=== PATIENT | male | born 1965 | race Caucasian/White ===

== ENCOUNTER 2018-12-04 13:24 | Emergency (ER) | payer OTHER ==
[2018-12-04 13:36] VITALS: BP 140/91
--- NOTE | 2018-12-04 14:23 | UC ---
Back Pain HPI - HPI Summary HPI Summary: 53 year old male with PMH + for cardiac stent placed ~ 5 years ago, on anticoag , HTN presents with back pain x 2 days. No trauma, falls, no increased lifting. No prior back pain/ injuries/ surgery - Denies chest pain, abdominal pain, SOB - Denies increased pain with movement, positioning- states painful in any position or movement- no change. Improved with Motrin yesterday. - Headache improved since yesterday- Denies neck stiffness. Diffuse headache, minimally improved with 600mg motrin - Denies weakness, numbness, tingling. Ambulatory without difficulty. - No urinary symptoms- no hematuria. - No recent med changes. - Concerned about kidney stone as daughter was recently dx'd with one. - History of Current Complaint Chief Complaint: UCBackPain Stated Complaint: BACK PAIN/HEADACHE Time Seen by Provider: 12/04/18 13:38 Hx Obtained From: Patient Onset/Duration: Sudden Onset, Lasting Days - 2 days Timing: Constant Severity Initially: Moderate Severity Currently: Moderate Pain Intensity: 3 Pain Scale Used: 0-10 Numeric Back Pain: Is Discrete @ - mid back, paraspinal, radiating up to head yesterdya - Allergies/Home Medications Allergies/Adverse Reactions: Allergies Allergy/AdvReac Type Severity Reaction Status Date / Time No Known Allergies Allergy Verified 12/04/18 17:16 Home Medications: Home Medications Atorvastatin* [Lipitor 40 MG*] 1 tab PO DAILY 12/04/18 [History Confirmed ] Lisinopril 1 tab PO DAILY 12/04/18 [History Confirmed 12/04/18] PMH/Surg Hx/FS Hx/Imm Hx - Surgical History Surgical History: None - Social History Alcohol Use: Occasionally Substance Use Type: None Smoking Status (MU): Never Smoked Tobacco Review of Systems All Other Systems Reviewed And Are Negative: Yes Constitutional: Positive: Negative Gastrointestinal: Positive: Negative Motor: Positive: Negative Neurovascular: Positive: Negative Psychological: Positive: Anxious Is Patient Immunocompromised?: No Physical Exam Triage Information Reviewed: Yes Appearance: No Pain Distress, Well-Nourished, Ill-Appearing Vital Signs: Initial Vital Signs Temp 98.4 F 12/04/18 13:33 Pulse 95 12/04/18 13:33 Resp 16 12/04/18 13:33 BP 140/91 12/04/18 13:33 Pulse Ox 100 08/08/19 13:33 Vital Signs Reviewed: Yes Eye Exam: Normal Neck: Positive: Supple, Nontender, No Lymphadenopathy. Negative: Nuchal Rigidity, Enlarged Nodes @ Respiratory: Positive: Chest non-tender, Lungs clear, Normal breath sounds, No respiratory distress, No accessory muscle use. Negative: Crackles, Rhonchi, Stridor, Wheezing, Expiration Cardiovascular: Positive: RRR, No Murmur, Pulses Normal Abdomen Description: Positive: Nontender, No Organomegaly, Soft, Bruit, Other: - minimal tenderness to palpation thoracic paraspinal. Negative: CVA Tenderness (R), CVA Tenderness (L) Musculoskeletal Exam: Normal Musculoskeletal: Positive: Strength Intact, ROM Intact Neurological Exam: Normal Neurological: Positive: Alert, Muscle Tone Normal Psychological Exam: Normal Skin Exam: Normal Skin: Negative: Rashes, Breakdown Back Pain Course/Dx - Course Course Of Treatment: Pancreatitis on imaging and consistent with examination. Patient sent for further work-up/ treatment via ambulance to [facility]. Info called and given to Dr. Locke. - Differential Dx/Diagnosis Differential Diagnosis/HQI/PQRI: Strain, Sprain Provider Diagnosis: Pancreatitis Discharge - Sign-Out/Discharge Documenting (check all that apply): Patient Departure All imaging exams completed and their final reports reviewed: Yes - Discharge Plan Condition: Guarded Disposition: TRANS HIGHER LVL OF CARE FAC Patient Education Materials: Pancreatitis (ED) Referrals: Rodolfo Jeff MD [Primary Care Provider] - Additional Instructions: - nothing by mouth - Go Directly to ER for treatment - Billing Disposition and Condition Condition: GUARDED Disposition: Trans Higher Lvl of Care Fac - Attestation Statements Provider Attestation: Patient was seen by [facility]. Patient was presented to me by a PPD. Patient is a 53-year-old male here with back pain that started the day prior to this visit. Patient's pain is or when he woke up. Patient had associated headache which has since improved. Patient's pain is located in his lumbar spine and does not radiate. Patient no abdominal pain, numbness, tingling, bowel/bladder dysfunction, saddle anesthesia. On exam, patient has paraspinal tenderness in his lumbar spine. No abdominal mass noted. Femoral pulses 2+. Radial pulses 2+. Patient standing at bedside and ambulating without difficulty on both his toes and his heels. Imaging reviewed and patient had pancreatitis on CT scan. Patient sent to [facility] for further evaluation and management.
[2018-12-04] MEDS ORDERED: NS 0.9% 1000 ML** 1,000 ML IV ONE (16:14)
[2018-12-04] MEDS ORDERED: Morphine 10 MG/ML VIAL (1 ml) IV ONE (16:16)
[2018-12-04] MEDS ORDERED: Ondansetron INJ* 2 MG/ML VIAL IV ONE (16:18)
== END 2018-12-04 16:40 | disposition short-term general hospital (02) ==
LOC: UCEAST 13:24
DX: K85.90 Acute pancreatitis without necrosis or infection, unspecified (principal); I10 Essential (primary) hypertension; Z79.01 Long term (current) use of anticoagulants
CPT/HCPCS: 74176; 81002; 96374; 96375; 99203; G0463; J2270; J2405

== ENCOUNTER 2018-12-04 17:04 | Observation (INO) | payer OTHER ==
--- NOTE | 2018-12-04 17:39 | ED ---
Abdominal Pain/Male - HPI Summary HPI Summary: 53 year old M brought in by ambulance from [facility] to [facility] with a chief complaint of abdominal pain since yesterday morning. The patient rates the pain 5/10 in severity. Symptoms aggravated by nothing. Symptoms alleviated by Advil. Patient reports lower/mid back pain and difficulty sleeping. Patient denies nausea, vomiting, fever, chills, chest pain. Patient was diagnosed with pancreatitis at [facility]. Denies hx pancreatitis. Patient had CT Abdomen/ Pelvis done at [facility]. Patient takes lisinopril, aspirin 81 mg, and Lipitor. Patient states he drinks alcohol occasionally but hasn't had any in the last week. Patient denies smoking and recreational drug use. - History of Current Complaint Chief Complaint: EDAbdPain Stated Complaint: FLANK PAIN PER EMS Time Seen by Provider: 12/04/18 17:29 Hx Obtained From: Patient Onset/Duration: Lasting Days - 1, Still Present Timing: Constant Severity Currently: Moderate Pain Intensity: 4 Pain Scale Used: 0-10 Numeric Aggravating Factor(s): Nothing Alleviating Factor(s): Other: - Advil Associated Signs And Symptoms: Positive: Negative - nausea, vomiting, fever, chills, chest pain, Other - lower/mid back pain and difficulty sleeping - Allergies/Home Medications Allergies/Adverse Reactions: Allergies Allergy/AdvReac Type Severity Reaction Status Date / Time No Known Allergies Allergy Verified 12/04/18 17:16 Home Medications: Home Medications Aspirin EC TAB* [Ecotrin EC Low Dose 81 MG*] 81 mg PO DAILY 12/04/18 [History Confirmed 12/04/18] PMH/Surg Hx/FS Hx/Imm Hx Cardiovascular History: Reports: Hx Hypercholesterolemia, Hx Hypertension Sensory History: Denies: Hx Deafness EENT History: Denies: Hx Deafness - Cancer History Cancer Type, Location and Year: none - Surgical History Surgery Procedure, Year, and Place: n/a Infectious Disease History: No Infectious Disease History: Denies: Traveled Outside the [place] in Last 30 Days - Family History Known Family History: Negative: Blood Disorder - Social History Alcohol Use: Occasionally Hx Substance Use: No Substance Use Type: Reports: None Hx Tobacco Use: No Smoking Status (MU): Never Smoked Tobacco Review of Systems Negative: Fever, Chills Negative: Chest Pain Positive: Abdominal Pain. Negative: Vomiting, Nausea Positive: Other - lower/mid back pain Positive: Other - difficulty sleeping All Other Systems Reviewed And Are Negative: Yes Physical Exam - Summary Physical Exam Summary: GENERAL: Patient is a well-developed and nourished M who is lying comfortable in the stretcher. Patient is not in any acute respiratory distress. HEAD AND FACE: Normocephalic EYES: PERRLA, EOMI x 2. EARS: Hearing grossly intact. MOUTH: Oropharynx within normal limits. NECK: Supple, trachea is midline, no adenopathy, no JVD, no carotid bruit. CHEST: Symmetric, no tenderness at palpation LUNGS: Clear to auscultation bilaterally. No wheezing or crackles. CVS: Regular rate and rhythm, S1 and S2 present, no murmurs or gallops appreciated. ABDOMEN: Very mild tend to palpation in epigastric area. Abdomen is soft. Bowel sounds are normal. No abnormal abdominal pulsations. EXTREMITIES: Full ROM in all major joints, no edema, no cyanosis or clubbing. NEURO: Alert and oriented x 3. No acute neurological deficits. Speech is normal and follows commands. SKIN: Dry and warm Triage Information Reviewed: Yes Vital Signs On Initial Exam: Initial Vitals Temp Pulse Resp BP Pulse Ox 97.6 F 80 16 161/93 97 12/04/18 17:12 12/04/18 17:12 12/04/18 17:12 12/04/18 17:12 12/04/18 17:12 Vital Signs Reviewed: Yes Diagnostics - Vital Signs Vital Signs Temp Pulse Resp BP Pulse Ox 12/04/18 17:12 97.6 F 80 16 161/93 97 - Laboratory Result Diagrams: 12/06/18 06:50 12/06/18 06:50 Lab Statement: Any lab studies that have been ordered have been reviewed, and results considered in the medical decision making process. - EKG 1756 Cardiac Rate: NL - 76 BPM EKG Rhythm: Sinus Rhythm Summary of EKG Findings: NSR 76 BPM Abdominal Pain Male Course/Dx - Course Course Of Treatment: 53 year old M brought in by ambulance from [facility] to [facility] with a chief complaint of abdominal pain, lower/mid back pain, difficulty sleeping since yesterday morning. Patient was diagnosed with pancreatitis at [facility] where he had CT Abdomen/Pelvis done. PE findings: Very mild tenderness to palpation in epigastric area. EKG shows NSR 76 BPM. In ED course, patient was given morphine 4 mg and Zofran 4 mg. UAs show no significant abnormalities except for specific gravity 1.003, ketones trace, blood 1+, glucose 1+. The patient will be signed out to Dr. Smallwood upon shift change at 19:00 12/04/18, awaiting bloodwork, and pending disposition. - Diagnoses Provider Diagnoses: Duodenitis Discharge - Sign-Out/Discharge Documenting (check all that apply): Sign-Out Patient Signing out patient TO: Hugh Smallwood - awaiting bloodwork and pending disposition. Patient Received Moderate/Deep Sedation with Procedure: No - Discharge Plan Condition: Improved Disposition: ADMITTED TO [facility] - Billing Disposition and Condition Condition: IMPROVED Disposition: Admitted to [facility] - Attestation Statements Document Initiated by Shireene: Yes Documenting Scribe: Marielle ram Provider For Whom Chanibe is Documenting (Include Credential): Milady Jay MD Scribe Attestation: Marielle Perez, scribed for Milady Jay MD on 12/06/18 at 0819. Scribe Documentation Reviewed: Yes Provider Attestation: The documentation as recorded by the scribeMarielle accurately reflects the service I personally performed and the decisions made by me, Milady Jay MD Status of Scribe Document: Viewed
[2018-12-04] MEDS ORDERED: NS 0.9% 1000 ML** 1,000 ML IV ONE (17:50)
[2018-12-04] MEDS ORDERED: Ondansetron INJ* 2 MG/ML VIAL IV ONE (17:52)
[2018-12-04] MEDS ORDERED: Morphine 4 MG/ML VIAL (1 ml) 4 MG/ML VIAL IV ONE ×2 (17:52→20:25)
[2018-12-04 18:38] LABS: Urine Appearance Clear; Urine Bacteria Absent (Absent); Urine Bilirubin Negative (Negative); Urine Blood 1+ (Negative); Urine Color Colorless; Urine Glucose 1+(50 mg/dL) (Negative); Urine Ketones Trace (Negative); Urine Nitrite Negative (Negative); Urine Protein Negative (Negative); Urine Red Blood Cell Trace(0-2/hpf) (Absent); Urine Specific Gravity 1.003 (1.010-1.030); Urine Urobilinogen Negative (Negative); Urine White Blood Cell Absent (Absent)
[2018-12-04 18:57] LABS: ABS Basophils 0.1 10^3/ul (0-0.2); ABS Eosinophils 0.1 10^3/ul (0-0.6); ABS Lymphocytes 1.4 10^3/ul (1.0-4.8); ABS Monocytes 1.5 10^3/ul (0-0.8); ABS Neutrophils 13.3 10^3/ul (1.5-7.7); Eosinophil % 0.7 %; Hematocrit 40 % (42-52); Lymphocyte % 8.8 %; Mean Corpuscular HGB Conc 33 g/dL (31-36); Mean Corpuscular Hemoglobin 30 pg (27-31); Mean Corpuscular Volume 92 fL (80-94); Mean Platelet Volume 8.1 fL (7.4-10.4); Platelet Count 268 10^3/uL (150-450); Red Blood Count 4.32 10^6 /uL (4.18-5.48); Red Cell Distribution Width 14 % (10-15); White Blood Count 16.3 10^3/uL (3.5-10.8)
[2018-12-04 19:04] LABS: Activated Partial Thrombo Time 35.3 seconds (26.0-38.0); INR 1.06 (0.82-1.09)
[2018-12-04 19:09] LABS: ALT 12 U/L (7-52); Albumin 4.5 g/dL (3.2-5.2); Albumin/Globulin Ratio 1.5 (1-3); Alkaline Phosphatase 49 U/L (34-104); Amylase 43 U/L (29-103); BUN/Creatinine Ratio 14.7 (8-20); Blood Urea Nitrogen 16 mg/dL (6-24); C Reactive Protein 144.78 mg/L (<8.01); CO2 Carbon Dioxide 22 mmol/L (22-32); Calcium 9.2 mg/dL (8.6-10.3); Chloride 101 mmol/L (101-111); EGFR Non-African American 70.2 (>60); Glucose 105 mg/dL (70-100); Sodium 133 mmol/L (135-145); Total Protein 7.5 g/dL (6.4-8.9); Troponin I 0.01 ng/mL (<0.04)
--- NOTE | 2018-12-04 19:17 | ED ---
Progress - Progress Note Progress Note: Patient is received as a sign-out from Dr. Jay to Dr. Smallwood at 189912/04/18 shift change pending lab results for this patient. 2019 - Patient reports increase of back pain. He states that the pain onset yesterday morning. Patient reports no abdominal pain. Nausea and decreased appetite are endorsed while vomiting and fever are denied. No bowel issues reported. He reports no food since yesterday and states he had a bowel movement this morning. Cardiac stent placement 4.5 years ago is reported. No extensive alcohol usage is noted. No pain to palpation noted. Patient is agreeable with admission. Re-Evaluation - Re-Evaluation First Eval Re-Evaluation Time: 20:20 Change: Worse Comment: 2019 - Patient reports increase of back pain. He states that the pain onset yesterday morning. Patient reports no abdominal pain. Nausea and decreased appetite are endorsed while vomiting and fever are denied. No bowel issues reported. He reports no food since yesterday and states he had a bowel movement this morning. Cardiac stent placement 4.5 years ago is reported. No extensive alcohol usage is noted. No pain to palpation noted. Patient is agreeable with admission. Course/Dx - Course Course Of Treatment: Patient is received as a sign-out from Dr. Jay to Dr. Smallwood at 189912/04/18 shift change pending lab results for this patient. 2019 - Patient reports increase of back pain. He states that the pain onset yesterday morning. Patient reports no abdominal pain. Nausea and decreased appetite are endorsed while vomiting and fever are denied. No bowel issues reported. He reports no food since yesterday and states he had a bowel movement this morning. Cardiac stent placement 4.5 years ago is reported. No extensive alcohol usage is noted. No pain to palpation noted. Patient is agreeable with admission. Labs showed WBC 16.3, Hgb 13, Hct 40, absolute neuts 13.3, absolute monos 1.5, sodium 133, glucose 105, total bilirubin 1.20, CRP 144.78, trop 0.01 , ALT 12, alk phos 49, amylase 43, lipase 52. UA showed trace ketones, 1+ blood , trace RBC, 1+ glucose. During ED course, patient received morphine 4 mg IV and piperacillin sod/tazobactam sod 3.375 gm in sodium chloride, 100 mls @ 200 mls/hr IVPB ONCE. 2031 - Patient's case was discussed with Dr. Roach, Dr. Roach accepts for admission. - Diagnoses Provider Diagnoses: Duodenitis - Provider Notifications Discussed Care Of Patient With: Garcia Roach Time Discussed With Above Provider: 20:32 Instructed by Provider To: Other - 2031 - Patient's case was discussed with Dr. Roach, Dr. Roach accepts for admission. Discharge - Sign-Out/Discharge Documenting (check all that apply): Patient Departure - admit, Receiving Sign- Out Receiving patient FROM: Milady Jay - Discharge Plan Condition: Stable Disposition: ADMITTED TO [facility] Referrals: Rodolfo Jeff MD [Primary Care Provider] - - Attestation Statements Document Initiated by Scribe: Yes Documenting Scribe: KYM DAVIS Provider For Whom Scribe is Documenting (Include Credential): GABE SMALLWOOD MD Scribe Attestation: I, KYM DAVIS, scribed for GABE SMALLWOOD MD on 12/04/18 at 2101. Status of Scribe Document: Ready
[2018-12-04 19:22] LABS: Anion Gap 10 mmol/L (2-11)
[2018-12-04] MEDS ORDERED: Piperacillin/Tazobac ADVAN(*) 3.375 GM in NS 0.9% 100 ML* 100 ML IVPB ONE (20:27)
[2018-12-04] MEDS ORDERED: Al Hydrox/Mg Hydrox/Simet LIQ* 30 ML UDC PO PRN (23:21)
[2018-12-04] MEDS ORDERED: Morphine INJ* 2 MG/ML 1 ML SYRINGE (TWO MG - NEW SYRINGE VERSION) IV PRN (23:21)
[2018-12-04] MEDS ORDERED: Senna TAB 8.6 mg* TAB PO PRN (23:21)
[2018-12-04] MEDS ORDERED: Ondansetron INJ* 2 MG/ML VIAL IV PRN (23:21)
[2018-12-04] MEDS ORDERED: Acetaminophen TAB* 325 MG PO PRN (23:21)
[2018-12-04] MEDS ORDERED: Zosyn per Pharmacy* NOTE FOLLOW UP SCH (23:45)
[2018-12-05] MEDS: ZOSYN 3.375 GM Q8H per EXTENDED INFUSION IVPB SCH ×4 (01:08→08:08)
[2018-12-05] MEDS ORDERED: Pantoprazole IV* 40 MG IV SCH (01:15)
--- NOTE | 2018-12-05 01:49 | HP ---
CC: Dr. Jeff* HISTORY AND PHYSICAL: DATE OF ADMISSION: 12/04/18 PRIMARY CARE PROVIDER: Dr. Jeff. ATTENDING PHYSICIAN WHILE IN THE HOSPITAL: Dr. Garcia Roach* (dictated by JACINTA Mathews). CHIEF COMPLAINT: Back pain and abdominal pain. HISTORY OF PRESENT ILLNESS: Thanh Scales is a 53-year-old white male with past medical history significant for coronary artery disease, hypertension, hyperlipidemia, who presented to urgent care earlier today complaining of back pain and abdominal pain. CT abdomen and pelvis without contrast was performed at urgent care, which demonstrated suspicious findings, questionable for pancreatitis and the patient was advised to report to the emergency department. In the emergency department, the patient's abdominal pain and back pain continued and was moderately improved with morphine. His amylase and lipase are negative, and therefore the hospitalists were asked to evaluate the patient for admission. The patient reports that starting yesterday, he started having back pain bilaterally on either side of his vertebral canal in the mid to lower back region. He denies any recent physical exertion. He says that he at times has abdominal pain in the upper quadrants, which only occurs when the back pain is very severe. He feels like the pain wraps around from his back to the front of his abdomen. He does not believe that this has any pattern in particular. He has not been eating at all because he has no appetite due to this pain. He has had intermittent nausea and has not vomited. His bowel movements have been overall normal. His last bowel movement was this morning, it was not black or bloody. He has not been having diarrhea or urinary issues. He denies fever, chills, chest pain, shortness of breath as well. PAST MEDICAL HISTORY: Hypertension, hyperlipidemia, coronary artery disease status post PCI. PAST SURGICAL HISTORY: Hand surgery to remove a metal chip in the 1990s Stent placed in coronary artery unknown to the patient. MEDICATIONS: 1. Aspirin 81 mg p.o. daily. 2. Lisinopril 10 mg p.o. daily. 3. Lipitor 40 mg p.o. daily. ALLERGIES: No known drug allergies. FAMILY HISTORY: Father of coronary artery disease at age 64. Mother of complications related to Alzheimer's in her 60s. SOCIAL HISTORY: The patient lives with his and 2 daughters in [place]. 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 He has approximately 1 alcoholic beverage per month. He is not a smoker and has never been a smoker but did use to occasionally smoke cigars. Denies illicit drug use. The patient would like his Martha Scales, phone number [phone], to be his surrogate medical decision maker should he need one. REVIEW OF SYSTEMS: An 11-point review of systems was completed and all pertinent positives and negatives are above in the HPI and other systems are negative. PHYSICAL EXAMINATION GENERAL: Obese white male, lying comfortably in hospital bed, appearing comfortable, in no acute distress with daughter and at bedside. HEENT: Head: Normocephalic, atraumatic. Eyes: PERRL. Sclerae anicteric. ENT: Mucous membranes moist. LUNGS: Clear to auscultation throughout. CARDIO: Regular rate and rhythm. No murmurs, rubs, or gallops. ABDOMEN: Normoactive bowel sounds x4 quadrants. Abdomen is soft, nontender, and nondistended. No guarding. No epigastric pain. Tympanic to percussion throughout. MUSCULOSKELETAL: No spinal process tenderness throughout. No tenderness to the paraspinal muscles to touch. No CVA tenderness. NEUROLOGIC: The patient is alert and oriented x3. No focal deficits. Able to move all extremities. SKIN: Skin is warm, dry, and intact. DIAGNOSTIC STUDIES/LAB DATA: CT abdomen and pelvis without contrast obtained at urgent care on 12/04/18, impression: 1. There is interstitial stranding around the pancreatic head, uncinate process and horizontal duodenum suggestive of inflammatory change in the duodenum and/or pancreatitis. Recommend clinical correlation and followup. 2. There is moderate distention of the stomach likely related to the above process. 3. Hepatic steatosis. 4. Multiple renal cysts and possibly complex cyst in the right kidney. Recommend an outpatient renal ultrasound for further evaluation. White blood cell count 16.3, hemoglobin 13.0, hematocrit 40, platelet count 268. Sodium 133, potassium not reported, chloride 101, carbon dioxide 22, anion gap 10, BUN 16, creatinine 1.09, glucose 105, lactic acid 1.4, calcium 9.2. Total bilirubin 1.2, AST not reported, ALT 12, alk phos 49. CRP 144.78. Amylase 43, lipase 52. INR 1.06 Urine, positive 1+ glucose, 1+ blood, trace ketones. ASSESSMENT AND PLAN: Thanh Scales is a 53-year-old white male with past medical history of hypertension, hyperlipidemia, coronary artery disease, who presents for abdominal pain and back pain. The patient will be admitted OBV for : 1. Abdominal pain. The patient's CT demonstrates duodenitis. The pancreatitis that is reported is not correlated as lipase and amylase are within normal limits. The patient does have elevated bilirubin. His AST is not reported and it is ordered to be redrawn. I will order a complete abdominal ultrasound and the patient will be n.p.o. after midnight for this. The patient does not have appetite at this time at any rate. The patient additionally has leukocytosis. Typically, duodenitis on the CT likely represents an ulcer; however, given the leukocytosis, I will continue Zosyn, which has already been given in the emergency department. I will order IV pantoprazole given the possibility of possible duodenal ulcer. The patient does not have evidence of GI bleed at this time. I will order a stool Hemoccult to ensure there is no microscopic blood. The patient does not have an anemia, the patient has a hemoglobin of 13, which is quite stable. I will continue pain control with oxycodone, morphine, and Tylenol and I have ordered a GI consult as well and appreciate their input. 2. Coronary artery disease. Continue lisinopril, atorvastatin, and aspirin. 3. Hypertension. The patient has been overall normotensive. I will continue his home lisinopril. 4. FEN. The patient's potassium is not reported and this needs to be followed up with the redraw that is scheduled. Otherwise, his sodium is minimally decreased but this is possibly due to low oral intake. We will continue to monitor this. Diet is n.p.o. after midnight. 5. Code status. The patient is full code. 6. DVT prophylaxis. The patient has a DVT risk score of 1. I will order SCDs. TIME SPENT: Approximately 45 minutes was spent on this admission, approximately half of the time was spent at bedside. This case has been reviewed by my attending, Dr. Garcia Roach and he agrees with the plan of care. JACINTA MATHEWS [id number]/[facility] #: [id number] MTDD
[2018-12-05] MEDS: oxyCODONE/Acetamin 5/325 MG* TAB PO PRN ×2 (04:38→17:05)
[2018-12-05 06:13] LABS: ABS Eosinophils 0.3 10^3/ul (0-0.6); ABS Lymphocytes 1.3 10^3/ul (1.0-4.8); ABS Monocytes 1.2 10^3/ul (0-0.8); Eosinophil % 2.8 %; Hematocrit 35 % (42-52); Hemoglobin 11.7 g/dL (14.0-18.0); Lymphocyte % 10.6 %; Mean Corpuscular HGB Conc 34 g/dL (31-36); Mean Corpuscular Hemoglobin 31 pg (27-31); Mean Corpuscular Volume 93 fL (80-94); Mean Platelet Volume 7.7 fL (7.4-10.4); Nucleated Red Blood Cells % 0.1; Platelet Count 212 10^3/uL (150-450); Red Blood Count 3.76 10^6 /uL (4.18-5.48); Red Cell Distribution Width 13 % (10-15); White Blood Count 11.9 10^3/uL (3.5-10.8)
[2018-12-05 06:26] LABS: Albumin 3.6 g/dL (3.2-5.2); Albumin/Globulin Ratio 1.4 (1-3); BUN/Creatinine Ratio 9.5 (8-20); Calcium 8.4 mg/dL (8.6-10.3); EGFR African American 79.1 (>60); EGFR Non-African American 65.4 (>60); Globulin 2.5 g/dL (2-4); Potassium 3.8 mmol/L (3.5-5.0); Total Bilirubin 1.3 mg/dL (0.2-1.0); Total Protein 6.1 g/dL (6.4-8.9)
[2018-12-05 06:27] LABS: Potassium Redraw 3.8 mmol/L (3.5-5.0)
[2018-12-05] MEDS: Lisinopril TAB* 10 MG PO SCH (07:58)
[2018-12-05] MEDS: Atorvastatin* 40 MG TAB PO SCH (07:58)
[2018-12-05] MEDS: Aspirin EC TAB* 81 MG TAB.EC PO SCH (07:58)
--- NOTE | 2018-12-05 12:52 | PN ---
Progress Note - Progress Note Date of Service: 12/05/18 Note: Back pain much improved since early this AM. No nausea. Nl BM yesterday. Somewhat hungry and thirsty.
[2018-12-05] MEDS ORDERED: D5W 1/2 NS KCl 20 Meq 1000 ML* 1,000 ML IV SCH (13:00)
--- NOTE | 2018-12-05 13:01 | PN ---
Subjective Date of Service: 12/05/18 Interval History: Back pain much improved since early this AM. No nausea. Nl BM yesterday. Somewhat hungry and thirsty. Objective Active Medications: Acetaminophen (Tylenol Tab*) 650 mg PO Q4H PRN PRN Reason: MILD PAIN or TEMP > 100.4 Last Admin: 12/05/18 00:41 Dose: 650 mg Al Hydrox/Mg Hydrox/Simethicone (Maalox Plus*) 30 ml PO Q6H PRN PRN Reason: INDIGESTION Aspirin (Aspirin Ec Tab*) 81 mg PO DAILY [facility] Last Admin: 12/05/18 07:58 Dose: Not Given Atorvastatin Calcium (Lipitor*) 40 mg PO DAILY [facility] Last Admin: 12/05/18 07:58 Dose: Not Given Potassium Chloride/Dextrose (D5w 1/2 Ns Kcl 20 Meq 1000 Ml*) 1,000 mls @ 125 mls/hr IV PER RATE [facility] Lisinopril (Prinivil Tab*) 10 mg PO DAILY [facility] Last Admin: 12/05/18 07:58 Dose: Not Given Morphine Sulfate (Morphine Inj (Syringe))*) 2 mg IV Q4H PRN PRN Reason: breakthrough pain Last Admin: 12/05/18 00:41 Dose: 2 mg Ondansetron HCl (Zofran Inj*) 4 mg IV Q4H PRN PRN Reason: NAUSEA/VOMITING Oxycodone/Acetaminophen (Percocet 5/325 Tab*) 1 tab PO Q4H PRN PRN Reason: PAIN - SEVERE Last Admin: 12/05/18 04:38 Dose: 1 tab Pantoprazole Sodium (Protonix Iv*) 40 mg IV Q12H [facility] Senna (Senokot 8.6 Mg Tab*) 1 tab PO BID PRN PRN Reason: CONSTIPATION Vital Signs - 8 hr 12/05/18 12/05/18 12/05/18 05:45 08:00 08:19 Temperature 98.9 F Pulse Rate 84 Respiratory 15 12 12 Rate Blood Pressure 122/66 (mmHg) O2 Sat by Pulse 93 Oximetry Oxygen Devices in Use Now: None Appearance: Alert, partly up in bed. In good spirits. Looks comfortable. Eyes: No Scleral Icterus Respiratory: Symmetrical Chest Expansion and Respiratory Effort, Clear to Auscultation, Clear to Percussion Cardiovascular: NL Sounds; No Murmurs; No JVD, RRR, No Edema, - Abdominal: NL Sounds; No Tenderness; No Distention, No Hepatosplenomegaly, - Extremities: No Edema, No Clubbing, Cyanosis, - Skin: No Rash or Ulcers, No Nodules or Sclerosis, - Neurological: Alert and Oriented x 3, NL Sensation Result Diagrams: 12/05/18 06:01 12/05/18 06:00 Assess/Plan/Problems-Billing Assessment: - Patient Problems (1) Abdominal pain Current Visit: Yes Status: Acute Code(s): R10.9 - UNSPECIFIED ABDOMINAL PAIN SNOMED Code(s): 16426106 Comment: Much improved 12/05/18, makes malignancy much less likely (also short HPI). In this area PUD more likely than infection, will stop pip/akshat. High CRP noted. (2) HTN (hypertension) Current Visit: Yes Status: Acute Code(s): I10 - ESSENTIAL (PRIMARY) HYPERTENSION SNOMED Code(s): 72705216 Comment: BP 122/66 12/05, hold lisinopril while awaiting GI consult. (3) CAD (coronary artery disease) Current Visit: Yes Status: Acute Code(s): I25.10 - ATHSCL HEART DISEASE OF [place] CORONARY ARTERY W/O ANG PCTRS SNOMED Code(s): 63278431 Comment: Hold ASA and statin while awaiting GI consult.
[2018-12-05] MEDS: Pantoprazole IV* 40 MG IV SCH (13:06)
[2018-12-05] MEDS ORDERED: Midazolam* 1 MG/ML 10 ML VIAL (10 MG) ONE (18:34)
[2018-12-05] MEDS ORDERED: fentaNYL* 50 MCG/ML 2 ML VIAL (100 MCG VIAL) ONE (18:34)
--- NOTE | 2018-12-05 19:35 | CONS ---
GASTROENTEROLOGY CONSULT: DATE OF CONSULT: 12/05/18 CONSULTING PHYSICIAN: Dr. Albino Muñoz. REASON FOR CONSULTATION: Back pain with CT scan showing an abnormality in the area of the duodenum and/or pancreatic head. HISTORY: This 53-year-old man with a history of coronary artery disease, status post stent 5 years ago and on statin therapy since then, has not characteristically been treated for any gastrointestinal problems. He does not take any over-the- counter gastrointestinal remedies. He states he had an unremarkable day on 12/02/18. He went to bed, feeling okay and woke up at around 5:30 with a mid backache that was symmetric and nonlateralizing. It seemed to come around both sides. He was uncomfortable most all the day, taking Advil p.r.n. He drove to [place] where he had lunch with his daughter. He continued to be uncomfortable and did not have dinner. He was very restless through the night. There was no fever, vomiting, or diarrhea. morning, he was tired, still having this discomfort and was taking more Advil. Again, there was no fever. He went to [facility] around 1 o' clock on Saturday and a CT scan showed the inflammation in the duodenal sweep area and he was transferred to the ER where his white count was 16, CRP 144, LFTs normal, and pancreatic enzymes normal. His temp went up to a 100.4 in the night. He took some pain shots through the night and said that he had great relief of his pain, which did not appear to come back some time in the skin tanner hours and he was also comfortable this morning. After admission, he had been placed on IV pantoprazole and did receive a couple of doses of Zosyn. He eats a regular diet and takes low dose aspirin 81 mg after his coronary intervention. PAST MEDICAL HISTORY: 1. Coronary artery disease, status post stenting. 2. Hypercholesterolemia - statin therapy. 3. Status post vasectomy. 4. Obesity. 5. Hypertension. MEDICATIONS: Aspirin 81; lisinopril 10; Lipitor 40. ALLERGIES: None known to drugs. SOCIAL HISTORY: He works for [employer]. He is , has 2 daughters. He is a nonsmoker. He eats a regular diet. FAMILY HISTORY: No history of ulcer disease. REVIEW OF SYSTEMS: No prior history of heartburn, acid indigestion, ulcers, palpitations, syncope, hemoptysis, hepatitis, jaundice. He last saw Dr. Jeff , his primary about a year and a half ago. PHYSICAL EXAM: Around 1800 on 12/05/18, he is a healthy-appearing, moderately overweight man, in no overt distress. He is quite upset about his studies being done late in the day. He is afebrile. Blood pressure 122/66. HEENT exam shows no icterus. He has no adenopathy. His lungs are clear and heart sounds are normal. He moves about the room and the bed without any inhibition or restriction at all. The abdomen is round, soft with active bowel sounds and there is no overt tenderness. Extremities show no edema. CT scan - no free fluid or air. Just swelling of the duodenal area. IMPRESSION: A 53-year-old man with mid back pain that radiates symmetrically around to the front of the abdomen. He has not had a striking fever or any emesis. He has not had a chronic history of gastrointestinal problems. The overall picture is somewhat unusual and there is a question of other ingestions such as toothpick or raw foods that might have a parasite. There is no sign of biliary dilation and no biochemical correlate of a biliary process or pancreatic ductal process. His NSAID exposure is quite low. At this time, gastroscopy would help. The results may not be specific, but the presence or absence of inflammation will be helpful. Addendum: as of 12/15/18 said he had no further difficulty and his trip had gone well [id number]/[facility] #: [id number] [facility]ITAL[facility]
--- NOTE | 2018-12-05 23:32 | PRO ---
DATE: 12/05/18 - ROOM #415 REFERRING PHYSICIAN: Albino Muñoz.* PROCEDURE: Upper gastrointestinal endoscopy and CLOtest and biopsy of gastric antrum and third portion of duodenum. INDICATIONS: This 53-year-old man developed back pain on the morning of . He took Advil sporadically over the next 48 hours and then came to [facility] and was transferred to the emergency room knowing that he had stranding in the duodenal area. He was given Zosyn and pantoprazole on admission. The Zosyn for a few doses and pantoprazole every 12 IV has been continued. Please see the separate consult. ENDOSCOPIST: Dr. Varghese. MEDICATIONS: Midazolam 7.5, fentanyl 100. FINDINGS: He is a healthy-appearing, moderately overweight, middle-aged man, in no distress. EGD: Larynx - symmetric, limited views. Esophagus - easily entered. The mucosa is normal in the upper, mid, and lower esophagus with the EG junction at 39. There has been a small sliding hiatal hernia. There is a minimal erythema stripe at a 3 o'clock orientation, but no deep erosion. There was no fundic prolapse. The GERD changes were very mild. Stomach - some minimal passive erythema in the antrum, but generally normal mucosa and rugal folds in the cardia, fundus, body, and antrum. There was initial pallor to some distal gastric body folds, but this resolved quickly. Two biopsies were taken of gastric antrum and CLOtest. Duodenum - the pylorus, bulb, and second through fourth portions appeared normal. Scope was inserted fully and as estimated a few centimeters of jejunum were seen. During withdrawal, normal free bile flow was seen in the third portion of the duodenum. Three biopsies were taken. There was no erythema whatsoever (the patient's states that due to one of their daughters restrictions, they are gluten free at home, but not so in restaurants). During withdrawal, there were no additional findings. IMPRESSION: 1. Small hiatal hernia. Addendum: Clotest negative - gastric and duodenal Bx normal 2. Minimal gastroesophageal reflux disease. 3. Back pain symmetric with elevated white count and CRP - cause not determined with this exam. Further followup studies will be done. [id number]/[facility] #: [id number] [facility]
[2018-12-06] MEDS: Pantoprazole IV* 40 MG IV SCH (01:29)
[2018-12-06 05:06] LABS: C Reactive Protein 160.6 mg/L (<8.01)
[2018-12-06 07:25] LABS: Albumin 4.1 g/dL (3.2-5.2); Calcium 9.5 mg/dL (8.6-10.3); Potassium 3.6 mmol/L (3.5-5.0); Total Bilirubin 0.7 mg/dL (0.2-1.0)
[2018-12-06 07:26] LABS: Hematocrit 39 % (42-52); Hemoglobin 13.1 g/dL (14.0-18.0); Mean Corpuscular HGB Conc 34 g/dL (31-36); Mean Corpuscular Hemoglobin 31 pg (27-31); Mean Corpuscular Volume 91 fL (80-94); Platelet Count 298 10^3/uL (150-450); Red Blood Count 4.23 10^6 /uL (4.18-5.48); Red Cell Distribution Width 13 % (10-15); White Blood Count 11.3 10^3/uL (3.5-10.8)
[2018-12-06 07:31] LABS: Albumin/Globulin Ratio 1.4 (1-3); BUN/Creatinine Ratio 7.6 (8-20); EGFR African American 77.5 (>60); EGFR Non-African American 64.1 (>60); Total Protein 7.1 g/dL (6.4-8.9)
[2018-12-06] MEDS: Atorvastatin* 40 MG TAB PO SCH (08:07)
[2018-12-06] MEDS: Aspirin EC TAB* 81 MG TAB.EC PO SCH (08:07)
[2018-12-06] MEDS: Lisinopril TAB* 10 MG PO SCH (08:08)
[2018-12-06 09:35] LABS: C Reactive Protein 156.41 mg/L (<8.01)
--- NOTE | 2018-12-06 09:37 | DS ---
AMENDED REPORT NOW INCLUDES DATE OF ADMISSION CC: Dr. Jeff * DISCHARGE SUMMARY: DATE OF ADMISSION: 12/04/18 DATE OF DISCHARGE: 12/06/18 HISTORY OF PRESENT ILLNESS: This 53-year-old man presented with back pain radiating bilaterally into the abdomen. The pain lasted, I think, less than 24 hours. It was completely gone by the time he was discharged. There was no nausea, vomiting. He was evaluated with a CT scan in the ED, which showed some stranding around the second and third portions of the duodenum adjacent to the pancreas. Repeated amylase and lipase levels were normal. He had endoscopy, which showed minimal GERD. CLOtest was done, biopsy was done; these results are pending. Repeat of his labs is pending. Notable laboratory finding besides borderline anemia and mild leukocytosis was the elevated CRP, which was 160.6 on 12/05/18. The significance of the elevated CRP is uncertain. It may simply represent some minor viral infection, but it could be a sign of more ominous process that seems to be entirely subclinical at this point. It should be followed up on. No changes were made to his medications. FINAL DIAGNOSES: 1. Transient abdominal pain and elevated CRP. Biopsy and CLOtest are pending. 2. Hypertension. 3. Coronary artery disease. DISPOSITION ON DISCHARGE: Discharged to home. CONDITION ON DISCHARGE: Improved. [id number]/[facility] #: [id number] RAYSA
[2018-12-06 10:23] VITALS: BP 150/84
== END 2018-12-06 08:20 | disposition home or self-care (01) ==
LOC: ED 17:04 → MED 23:21
PROVIDERS: ADMIT Internal Medicine; ATTEND Internal Medicine
DX: K44.9 Diaphragmatic hernia without obstruction or gangrene (principal); R10.9 Unspecified abdominal pain; K29.50 Unspecified chronic gastritis without bleeding; K21.9 Gastro-esophageal reflux disease without esophagitis; M54.9 Dorsalgia, unspecified; R79.82 Elevated C-reactive protein (CRP); I10 Essential (primary) hypertension; I25.10 Atherosclerotic heart disease of native coronary artery without angina pectoris; Z79.82 Long term (current) use of aspirin; Z79.899 Other long term (current) drug therapy; N28.1 Cyst of kidney, acquired; N28.89 Other specified disorders of kidney and ureter
CPT/HCPCS: 36415; 76700; 80053; 81003; 81015; 82150; 83605; 83690; 84484; 85025; 85027; 85610; 85730; 86140; 87077; 88305; 93005; 96365; 96366; 96375; 96376; 99156; 99157; 99284; A9270-GY; G0378; J2250; J2270; J2405; J2543; J3010